=== PATIENT | male | born 1985 | race Caucasian/White ===

== ENCOUNTER → 2021-06-14 | Outpatient (CLI) | payer OTHER | END | disposition home or self-care (01) | LOC: MRI 09:31 | PROVIDERS: ATTEND Preventive Medicine Occupational Medicine | DX: M19.072 Primary osteoarthritis, left ankle and foot (principal); M79.89 Other specified soft tissue disorders; S91.332D Puncture wound without foreign body, left foot, subsequent encounter; L08.9 Local infection of the skin and subcutaneous tissue, unspecified; M89.8X9 Other specified disorders of bone, unspecified site; X58.XXXD Exposure to other specified factors, subsequent encounter ==